=== PATIENT | male | born 1945 | race Caucasian/White ===

== ENCOUNTER → 2020-02-11 13:49 | Outpatient (BNVA) | payer OTHER, SELFPAY | PROVIDERS: PCP Nurse Practitioner Family; Referring Provider Nurse Practitioner Family; Visit Provider Psychiatry & Neurology Neurology | DX: G25.2 Other specified forms of tremor (principal) | CPT/HCPCS: 99204 ==

== ENCOUNTER → 2021-03-10 14:23 | Outpatient (BNVA) | payer OTHER, SELFPAY | PROVIDERS: PCP Nurse Practitioner Family; Referring Provider Nurse Practitioner Family; Visit Provider Psychiatry & Neurology Neurology | DX: G25.2 Other specified forms of tremor (principal); F41.9 Anxiety disorder, unspecified | CPT/HCPCS: 99213 ==

== ENCOUNTER → 2021-10-17 14:25 | Outpatient (BNVA) | payer MEDICARE, SELFPAY | PROVIDERS: PCP Nurse Practitioner Family; Referring Provider Nurse Practitioner Family; Visit Provider Psychiatry & Neurology Neurology | DX: G25.2 Other specified forms of tremor (principal) | CPT/HCPCS: 99214 ==

== ENCOUNTER → 2021-12-20 12:58 | Outpatient (BNVA) | payer MEDICARE, SELFPAY | PROVIDERS: PCP Nurse Practitioner Family; Referring Provider Nurse Practitioner Family; Visit Provider Psychiatry & Neurology Neurology | DX: G25.2 Other specified forms of tremor (principal) | CPT/HCPCS: 99214 ==

== ENCOUNTER → 2022-02-22 13:25 | Outpatient (BNVA) | payer MEDICARE, SELFPAY | PROVIDERS: PCP Nurse Practitioner Family; Referring Provider Nurse Practitioner Family; Visit Provider Psychiatry & Neurology Neurology | DX: G25.2 Other specified forms of tremor (principal) | CPT/HCPCS: 99214 ==

== ENCOUNTER → 2022-06-21 12:59 | Outpatient (BNVA) | payer MEDICARE, SELFPAY | PROVIDERS: PCP Nurse Practitioner Family; Visit Provider Psychiatry & Neurology Neurology | DX: G20 Parkinson's disease (principal) | CPT/HCPCS: 99213 ==

== ENCOUNTER → 2022-12-20 12:56 | Outpatient (BNVA) | payer MEDICARE, SELFPAY | PROVIDERS: PCP Nurse Practitioner Family; Referring Provider Nurse Practitioner Family; Visit Provider Psychiatry & Neurology Neurology | DX: G20 Parkinson's disease (principal); G25.2 Other specified forms of tremor | CPT/HCPCS: 99213 ==

== ENCOUNTER → 2023-08-27 13:27 | Outpatient (BNVA) | payer MEDICARE, SELFPAY | PROVIDERS: PCP Nurse Practitioner Family; Referring Provider Nurse Practitioner Family; Visit Provider Psychiatry & Neurology Neurology | DX: G25.2 Other specified forms of tremor (principal) | CPT/HCPCS: 99214 ==

== ENCOUNTER → 2024-01-21 12:31 | Outpatient (BNVA) | payer MEDICARE, SELFPAY | PROVIDERS: PCP Nurse Practitioner Family; Referring Provider Nurse Practitioner Family; Visit Provider Psychiatry & Neurology Neurology | DX: G20.C Parkinsonism, unspecified (principal) | CPT/HCPCS: 99214 ==

== ENCOUNTER → 2024-09-02 13:46 | Outpatient (BNVA) | payer MEDICARE, SELFPAY | PROVIDERS: PCP Nurse Practitioner Family; Referring Provider Nurse Practitioner Family; Visit Provider Psychiatry & Neurology Neurology | DX: G20.C Parkinsonism, unspecified (principal) | CPT/HCPCS: 99214 ==

== ENCOUNTER → 2025-02-23 09:56 | Outpatient (BNVA) | payer MEDICARE, SELFPAY | PROVIDERS: PCP Nurse Practitioner Family; Visit Provider Psychiatry & Neurology Neurology | DX: G20.C Parkinsonism, unspecified (principal) | CPT/HCPCS: 99213 ==